=== PATIENT | male | born 1965 | race Caucasian/White ===

== ENCOUNTER 2016-09-05 14:02 | Emergency (ER) | payer MEDICARE, OTHER ==
[~2016-09-05] VITALS: Ht 170.2 cm; Wt 59.0 kg
[~2016-09-05 14:02] MED LIST: AMPH15TA2 PO; DIAZ5TAB PO; OLAN10TA3 PO; TEMA30CA5 PO
[2016-09-05 14:26] VITALS: BP 150/80
--- NOTE | 2016-09-05 14:26 | NUR ---
Patient discharged to home in stable conditon. Written and verbal after care instructions given. Patient verbalizes understanding of instructions.
== END 2016-09-05 14:27 | disposition home or self-care (01) ==
LOC: ER 14:02
DX: Z76.0 Encounter for issue of repeat prescription (principal); F31.9 Bipolar disorder, unspecified; F19.10 Other psychoactive substance abuse, uncomplicated
CPT/HCPCS: 99283; A4663

== ENCOUNTER 2017-01-10 16:04 | Emergency (ER) | payer MEDICARE, OTHER ==
[~2017-01-10] VITALS: Ht 170.2 cm; Wt 57.6 kg
--- NOTE | 2017-01-10 16:18 | NUR ---
Patient is eating cookies and drinking coffee from our snack-coffee bar with good appetite, NAD.
--- NOTE | 2017-01-10 16:28 | NUR ---
Dr Lin is at bedside doing MSE.
--- NOTE | 2017-01-10 17:14 | NUR ---
Patient says "Can I have [place] for my toes?", notified.
--- NOTE | 2017-01-10 17:28 | NUR ---
Patient is resting comfortably while watching TV, pending disposition, no acute change in condition seen.
--- NOTE | 2017-01-10 17:40 | NUR ---
Patient discharged to home in stable conditon. Written and verbal after care instructions given to patient. Patient verbalizes understanding of instructions. Patient left ER with brisk steady gait.
== END 2017-01-10 17:41 | disposition home or self-care (01) ==
LOC: ER 16:05
DX: M79.674 Pain in right toe(s) (principal); M79.675 Pain in left toe(s); F32.9 Major depressive disorder, single episode, unspecified
CPT/HCPCS: 73620; A4663

== ENCOUNTER 2017-04-06 15:10 | Emergency (ER) | payer MEDICARE, OTHER ==
[~2017-04-06] VITALS: Ht 170.2 cm; Wt 68.9 kg
--- NOTE | 2017-04-06 15:20 | NUR ---
Pt was triaged and placed in ER waiting room, no ER beds available at this time.
--- NOTE | 2017-04-06 16:00 | NUR ---
Attempted to bring pt back to room 1b, pt was not found in ER waiting room or outside ER.
== END 2017-04-06 16:13 | disposition left against medical advice (07) ==
LOC: ER 15:11
DX: Z53.21 Procedure and treatment not carried out due to patient leaving prior to being seen by health care provider (principal)
CPT/HCPCS: A4663